=== PATIENT | male | born 1950 | race Caucasian/White ===

== ENCOUNTER 2024-12-27 10:38 | Observation (INO) ==
--- NOTE | 2024-12-27 11:04 | XRay Report ---
XR chest 1V portable CLINICAL HISTORY: Chest pain, nonspecific COMPARISON STUDY: None FINDINGS: Heart size and pulmonary vasculature are normal. No effusion, consolidation, or pneumothora x. IMPRESSION: No acute findings. ACT 112: Negative or not required by law. Electronically signed by: Eleuterio Underwood M.D. 12/27/2024 11:03 AM
[2024-12-27 11:06] LABS: Basophils # (auto) 0.03 K/uL (0.00-0.20); Basophils % (auto) 0.2 %; Eosinophils # (auto) 0.02 K/uL (0.00-0.50); Eosinophils % (auto) 0.2 %; Hematocrit (blood only) 46.3 % (42.0-52.0); Hemoglobin 15.6 g/dl (14.0-18.0); Immature Granulocytes # (auto) 0.04 K/uL (0.01-0.20); Immature Granulocytes % (auto) 0.3 %; Lymphocytes # (auto) 1.07 K/uL (1.20-3.40); Lymphocytes % (auto) 8.7 %; Mean Corpuscular Hemoglobin 29.6 pg (25.0-34.0); Mean Corpuscular Hgb Conc 33.7 g/dL (32.0-36.0); Mean Corpuscular Volume 87.9 fL (80.0-100.0); Mean Platelet Volume 10.4 fL (9.4-12.4); Monocytes # (auto) 1.07 K/uL (0.11-0.59); Monocytes % (auto) 8.7 %; Neutrophils # (auto) 10.09 K/uL (1.40-6.50); Neutrophils % (auto) 81.9 %; Platelet Count 158 K/uL (130-400); RDW Coefficient of Variation 13.2 % (11.5-14.5); RDW Standard Deviation 42.4 fL (36.4-46.3); Red Blood Count 5.27 M/uL (4.70-6.10); White Blood Count 12.32 K/ul (4.8-10.8)
--- NOTE | 2024-12-27 11:13 | Emergency Department Note ---
Impression & Plan Abscess of submandibular region, Facial swelling ED Provider Note NAME: SUSU TELLEZ AGE: 74 SEX: M : 1950 ARRIVES VIA: Walk-In INFORMANT: Patient, ED PROVIDER(S): Bayron Amezcua DO CHIEF COMPLAINT: Facial swelling HPI: The patient is a 74-year-old male who presented to the emergency department for an evaluation of right-sided neck swelling. The patient states it started approximately 3 to 4 days ago. He was seen by his family doctor. The patient did have some laboratory studies done but he was sent to the emergency department for further evaluation. He denies having any trauma. He states the pain is worse when he tries to eat or drink. He denies having any fever. He denies having any dental pain. ROS: See above HPI for pertinent positives & negatives. A total of 10 systems reviewed and were otherwise negative. PAST MEDICAL HISTORY: See Below PAST SURGICAL HISTORY: See Below FAMILY HISTORY: See Below SOCIAL HISTORY: See Below HOME MEDICATIONS: See Below ALLERGIES: See Below VITALS: See Below PHYSICAL EXAMINATION: GENERAL: Patient is awake alert in no acute distress patient is resting comfortably and showing no signs of anxiety EYES: The conjunctivae are clear. The pupils are round and reactive. EARS, NOSE, MOUTH AND THROAT: The nose is without any evidence of any deformity. Mucous membranes are moist. There is no gumline swelling or buccal mucosal swelling. There is significant swelling in the right submandibular region. The tongue is not protruding. NECK: The neck is nontender and supple. RESPIRATORY: Normal respiratory effort is noted there is no evidence of wheezing rhonchi or rales CARDIOVASCULAR: Regular rate and rhythm noted there no murmurs rubs or gallops normal S1 normal S2. GASTROINTESTINAL: The abdomen is soft. Abdomen is nontender. MUSCULOSKELETAL/EXTREMITIES: There is no evidence of gross deformity full range of motion is noted in the hips and shoulders. SKIN: There is no obvious evidence of any rash. There are no petechiae, pallor or cyanosis noted. NEUROLOGIC: Patient is awake alert and oriented x3 MEDICAL DECISION MAKING: The patient is a 74-year-old male who presented to the emergency department for an evaluation of facial swelling. The patient had a rather acute onset of swelling over the course of the last few days. The patient was seen by his family doctor. Given the acuity of the swelling as well as the patient's complaints they felt he required further evaluation in the emergency department. I discussed the patient's laboratory and radiographic studies with him. He was found to have findings consistent with an abscess in the submandibular region. He was treated with IV antibiotics and IV steroids. I discussed his condition with the on-call ENT physician as well as the on-call [facility] hospitalist group. They have agreed to evaluate the patient in the emergency department. Triage Nursing notes reviewed. Prior medical records reviewed Vital Signs: reviewed and remarkable for no significant abnormalities Differential diagnosis: Cervical strain, fracture, cervical disc disease, lymphadenitis, meningitis, tumor, arterial dissection, thyroiditis, parotitis, mastoiditis, neurologic, cardiovascular, as well as other pathologies. ER treatment provided: See below Diagnostics interpreted by me: ECG: EKG was obtained in the emergency department. My interpretation is sinus bradycardia at 57 bpm. There is no ectopy. There was no acute ST segment abnormalities noted. No previous tracing was available. Cardiac Monitoring: An order was placed for continuous cardiac monitoring. The monitor shows a rate of 67 bpm with sinus rhythm Laboratory studies: As stated above and show below. Imaging studies: See below. Radiographic imaging was reviewed by myself Consultation(s): I discussed this case with Dr. Pink who is on for ENT. I discussed this case with Dr. Peters who is on-call for the [facility] hospitalist group. Past Med/Surg History Problem List (Updated 12/27/24 @ 13:27 by Bayron Amezcua DO) Facial swelling (Acute) Abscess of submandibular region (Acute) ISIDRO (obstructive sleep apnea) Hyperlipemia Statin intolerance History of CVA (cerebrovascular accident) Hypertension Medical History CVA (cerebral vascular accident) Right inguinal hernia High cholesterol Hypertension Surgical History History of left hip replacement History of total right knee replacement Family History Grandmother (Maternal) Breast cancer Father Myocardial infarction Mother Ovarian cancer Grandfather (Maternal) Prostate cancer Denies family history of Colorectal cancer Social History Smoking Status: Unknown if ever smoked Tobacco Type: Cigarettes Age Started Using Tobacco: 20; Age Quit Using Tobacco: 24; packs per day: 0.15; Second Hand Exposure: No; Do You Dip or Chew Tobacco: No; Hx Alcohol Use: No Hx Substance Use: No Preferred Language: Citizen Of [place] Communication Ability: Effective Visual Impairment: No Limitations Hearing Ability: Normal Club Director Required: No marital status: / Current Living Situation: Alone current occupational status: retired How many Children do You have: 2 Feels Safe at Home: Yes Childhood Exposure to Second-Hand Smoke: Yes Diet: regular caffeine: Yes during the past year weight has: remained stable Dental Care, Regularly: Yes Physical Activity Frequency: Daily Seatbelt Use: always Sunscreen Use: Yes Assistive Devices: CPAP and Glasses Allergies Allergies Allergy/AdvReac Type Severity Reaction Status Date / Time No Known Allergies Allergy Verified 12/27/24 09:42 Home Meds Home Medications Medication Instructions Recorded Confirmed aspirin 81 mg tablet,delayed 81 mg PO DAILY 04/09/24 12/27/24 release (Michael Low Dose Aspirin) miscellaneous medical supply 12/27/24 12/27/24 Previous Rx's Medication Instructions Recorded [id number]-[id number] 300 mcg-K 60 1 tab PO DAILY #30 tabs 09/21/22 mcg-lycop 600 mcg-lutein 300 mcg tablet (Centrum Silver Men) ezetimibe 10 mg tablet (Zetia) 10 mg PO DAILY #90 tabs 09/06/24 pantoprazole 40 mg tablet,delayed 40 mg PO DAILY #30 tabs 10/09/24 release lisinopril 20 mg tablet 20 mg PO DAILY #90 tabs 12/27/24 Results & Data (ED) Vital Signs Vital Signs - 24 hr 12/27/24 10:43 12/27/24 10:54 12/27/24 10:58 Temperature 36.6 C Temperature Source Temporal Artery Scan Pulse Rate 73 75 Pulse Rate from SpO2 Sensor 64 Respiratory Rate 17 15 Respiratory Effort / Characteristics Non-Labored Spontaneous Respiratory Depth Normal Blood Pressure 146/87 H Blood Pressure Mean 106 Pulse Oximetry 99 98 98 Oxygen Delivery Method Room Air Room Air Sepsis Recent Fever Within 48 Hours No Sepsis New/Unexplained Change in Mental Status N/A Sepsis Action Taken by Nursing No Action Required 12/27/24 11:08 12/27/24 11:09 12/27/24 11:10 Temperature Temperature Source Pulse Rate 71 68 Pulse Rate from SpO2 Sensor 66 Respiratory Rate Respiratory Effort / Characteristics Respiratory Depth Blood Pressure 121/73 Blood Pressure Mean 95 Pulse Oximetry 99 Oxygen Delivery Method Sepsis Recent Fever Within 48 Hours Sepsis New/Unexplained Change in Mental Status Sepsis Action Taken by Nursing 12/27/24 11:12 12/27/24 11:21 12/27/24 11:27 Temperature Temperature Source Pulse Rate 59 L 57 L 54 L Pulse Rate from SpO2 Sensor 59 L 58 L 54 L Respiratory Rate 15 17 Respiratory Effort / Characteristics Respiratory Depth Blood Pressure Blood Pressure Mean Pulse Oximetry 98 96 97 Oxygen Delivery Method Sepsis Recent Fever Within 48 Hours Sepsis New/Unexplained Change in Mental Status Sepsis Action Taken by Nursing 12/27/24 11:30 12/27/24 11:30 12/27/24 11:30 Temperature Temperature Source Pulse Rate Pulse Rate from SpO2 Sensor Respiratory Rate Respiratory Effort / Characteristics Respiratory Depth Blood Pressure 117/61 117/61 117/61 Blood Pressure Mean 71 71 71 Pulse Oximetry Oxygen Delivery Method Sepsis Recent Fever Within 48 Hours Sepsis New/Unexplained Change in Mental Status Sepsis Action Taken by Nursing 12/27/24 11:30 12/27/24 11:30 12/27/24 11:30 Temperature Temperature Source Pulse Rate Pulse Rate from SpO2 Sensor Respiratory Rate Respiratory Effort / Characteristics Respiratory Depth Blood Pressure 117/61 117/61 117/61 Blood Pressure Mean 71 71 71 Pulse Oximetry Oxygen Delivery Method Sepsis Recent Fever Within 48 Hours Sepsis New/Unexplained Change in Mental Status Sepsis Action Taken by Nursing 12/27/24 11:30 12/27/24 11:30 12/27/24 11:48 Temperature Temperature Source Pulse Rate 66 Pulse Rate from SpO2 Sensor 51 L Respiratory Rate 19 Respiratory Effort / Characteristics Respiratory Depth Blood Pressure 117/61 117/61 Blood Pressure Mean 71 71 Pulse Oximetry 96 Oxygen Delivery Method Sepsis Recent Fever Within 48 Hours Sepsis New/Unexplained Change in Mental Status Sepsis Action Taken by Nursing 12/27/24 11:51 12/27/24 12:06 12/27/24 12:18 Temperature Temperature Source Pulse Rate 62 67 53 L Pulse Rate from SpO2 Sensor 61 60 54 L Respiratory Rate 21 23 15 Respiratory Effort / Characteristics Respiratory Depth Blood Pressure Blood Pressure Mean Pulse Oximetry 96 92 96 Oxygen Delivery Method Sepsis Recent Fever Within 48 Hours Sepsis New/Unexplained Change in Mental Status Sepsis Action Taken by Nursing 12/27/24 12:27 12/27/24 12:54 12/27/24 13:27 Temperature Temperature Source Pulse Rate 58 L 65 67 Pulse Rate from SpO2 Sensor 59 L 51 L 54 L Respiratory Rate 17 15 17 Respiratory Effort / Characteristics Respiratory Depth Blood Pressure Blood Pressure Mean Pulse Oximetry 97 97 98 Oxygen Delivery Method Sepsis Recent Fever Within 48 Hours Sepsis New/Unexplained Change in Mental Status Sepsis Action Taken by Nursing 12/27/24 13:30 12/27/24 13:30 12/27/24 13:30 Temperature Temperature Source Pulse Rate Pulse Rate from SpO2 Sensor Respiratory Rate Respiratory Effort / Characteristics Respiratory Depth Blood Pressure 131/70 131/70 131/70 Blood Pressure Mean 102 102 102 Pulse Oximetry Oxygen Delivery Method Sepsis Recent Fever Within 48 Hours Sepsis New/Unexplained Change in Mental Status Sepsis Action Taken by [facility] Medications Current Medication List: was personally reviewed by me Laboratory Data Attestation: I reviewed the patient's lab results. 12/27/24 10:55 12/27/24 10:55 Lab Results 12/27/24 Range/Units 10:55 WBC 12.32 H (4.8-10.8) K/ul RBC 5.27 (4.70-6.10) M/uL Hgb 15.6 (14.0-18.0) g/dl Hct 46.3 (42.0-52.0) % MCV 87.9 (80.0-100.0) fL MCH 29.6 (25.0-34.0) pg MCHC 33.7 (32.0-36.0) g/dL RDW Std Deviation 42.4 (36.4-46.3) fL RDW Coeff of Talia 13.2 (11.5-14.5) % Plt Count 158 (130-400) K/uL MPV 10.4 (9.4-12.4) fL Immature Gran % (Auto) 0.3 % Neut % (Auto) 81.9 % Lymph % (Auto) 8.7 % [place] % (Auto) 8.7 % Eos % (Auto) 0.2 % Baso % (Auto) 0.2 % Neut # (Auto) 10.09 H (1.40-6.50) K/uL Lymph # (Auto) 1.07 L (1.20-3.40) K/uL [place] # (Auto) 1.07 H (0.11-0.59) K/uL Eos # (Auto) 0.02 (0.00-0.50) K/uL Baso # (Auto) 0.03 (0.00-0.20) K/uL Immature Gran # (Auto) 0.04 (0.01-0.20) K/uL PT 11.2 (9.0-12.0) Seconds INR 1.0 (0.9-1.1) APTT 29 (21-31) Seconds PTT Ratio 1.1 Sodium 138 (136-145) mmol/L Potassium 3.9 (3.5-5.1) mmol/L Chloride 102 (98-107) mmol/L Carbon Dioxide 30 (21-32) mmol/L Anion Gap 6 (3-11) BUN 21 (6-23) mg/dl Creatinine 1.17 (0.6-1.4) mg/dl Est Cr Clr Drug Dosing 62.6 ml/min eGFR 65.42 BUN/Creatinine Ratio 17.9 (10-20) Glucose 106 H (70-99(Fasting)) mg/dl Calcium 9.6 (8.6-10.3) mg/dl Total Bilirubin 1.6 H (0.2-1.0) mg/dl AST 11 L (13-39) U/L ALT 8 (7-52) U/L Alkaline Phosphatase 54 (34-104) U/L Troponin I High Sens 7.1 (0-20) pg/ml Total Protein 7.5 (6.0-8.3) gm/dl Albumin 4.3 (3.4-5.0) gm/dl Globulin 3.2 (2.5-4.0) gm/dl Albumin/Globulin Ratio 1.3 (0.9-2) Lipase 17 (11-82) U/L Administered Medications Discontinued Medications Dexamethasone Sodium Phosphate (DexamethasonePf 10 Mg/Ml Vial) 10 mg IV NOW ONE Stop: 12/27/24 13:06 Last Admin: 12/27/24 13:14 Dose: 10 mg Documented By: BS Ampicillin Sodium/Sulbactam Sodium (Unasyn) 3,000 mg in 100 mls @ 200 mls/hr IV NOW STA Stop: 12/27/24 12:58 Last Infusion: 12/27/24 13:39 Dose: Infused Documented By: Admin: 12/27/24 12:43 Dose: 200 mls/hr Documented By: JED Sodium Chloride (Nss) 1,000 mls @ 999 mls/hr IV .Q1H1M ONE Stop: 12/27/24 13:30 Last Infusion: 12/27/24 13:39 Dose: Infused Documented By: Admin: 12/27/24 12:44 Dose: 999 mls/hr Documented By: JED Ioversol (Optiray 320 100ml) 94 ml IV ONCE ONE Stop: 12/27/24 11:59 Last Admin: 12/27/24 11:59 Dose: 94 ml Documented By: LINDSAY Imaging Data Attestation: I personally reviewed and interpreted this imaging study as follows: My Impression: 1 view chest x-ray was obtained in the emergency department. My interpretation is no free air or definite infiltrate, final report below. Radiologist's Impression: Chest X-Ray 12/27/24 10:50 XR chest 1V portable CLINICAL HISTORY: Chest pain, nonspecific COMPARISON STUDY: None FINDINGS: Heart size and pulmonary vasculature are normal. No effusion, consolidation, or pneumothorax. IMPRESSION: No acute findings. ACT 112: Negative or not required by law. Electronically signed by: Eleuterio Underwood M.D. 12/27/2024 11:03 AM Soft Tissue Neck CT 12/27/24 11:10 CT soft tissue neck w con CLINICAL HISTORY: right sided swelling COMPARISON STUDY: None FINDINGS: There is swallowing artifact. There is mild prominence of the right tonsillar pillar. There is a 3 cm oval hypodense finding with thin mildly enhancing rim posterior to the right submandibular gland which displaces the right submandibular gland anteriorly. There is surrounding soft tissue inflammation. The right submandibular gland is edematous and enlarged. There is mild right level 2 lymphadenopathy measuring up to 1.1 cm greatest dimension. There is cervical spine degenerative disc disease most advanced inferiorly. IMPRESSION: 1. 3 cm oval finding posterior to the right submandibular gland with adjacent inflammation. Differential diagnosis includes abscess, infected right branchial cleft cyst, and necrotic mass. 2. Likely reactive inflammation of the right submandibular gland, right tonsillar pillar and a few mildly enlarged right level 2 lymph nodes. 3. Follow-up to resolution recommended to rule out underlying mass. ACT 112: Positive. There are findings on this exam that require communication between the performing entity and the patient following Patient Test Result Information Act ([place] Act 112) guidelines. Electronically signed by: Eleuterio Underwood M.D. 12/27/2024 12:20 PM Discharge Plan Visit Data Chief Complaint: Throat Pain Stated Complaint: MASS PREVENTION SWALLOWING ED Provider: Bayron Amezcua Discharge Problem: Abscess of submandibular region, Facial swelling Patient Disposition: Being Evaluated by Hospitalist Forms [facility] Pres[facility] Prescriptions: No Action ezetimibe [Zetia] 10 mg tablet 10 mg PO DAILY Qty: 90 2RF Centrum Silver Men 300-600-300 mcg tablet 1 tab PO DAILY Qty: 30 0RF aspirin [Michael Low Dose Aspirin] 81 mg tablet,delayed release (DR/EC) 81 mg PO DAILY pantoprazole 40 mg tablet,delayed release (DR/EC) 40 mg PO DAILY Qty: 30 2RF lisinopril 20 mg tablet 20 mg PO DAILY Qty: 90 2RF (DME) miscellaneous medical supply Misc VAGINAL Rx Instructions: Patient needs supplies for his C-pap---(hoses and filters) Referrals Referrals: Melodie Nguyen CRNP [Primary Care Provider] -
[2024-12-27 11:19] LABS: Partial Thromboplastin Ratio 1.1; Partial Thromboplastin Time 29 Seconds (21-31); Prothrombin Time 11.2 Seconds (9.0-12.0)
[2024-12-27 11:39] LABS: Bilirubin,Total 1.6 mg/dl (0.2-1.0)
[2024-12-27 11:40] LABS: Albumin Globulin Ratio 1.3 (0.9-2); Albumin Level 4.3 gm/dl (3.4-5.0); BUN Creatinine Ratio 17.9 (10-20); Calcium 9.6 mg/dl (8.6-10.3); Creatinine Clr Calc Pharmacy 62.6 ml/min; Globulin 3.2 gm/dl (2.5-4.0); Potassium 3.9 mmol/L (3.5-5.1); Total Protein 7.5 gm/dl (6.0-8.3); Troponin I High Sensitivity 7.1 pg/ml (0-20)
[2024-12-27] MEDS: OPTIRAY 320 100ml IV ONE (11:59)
--- NOTE | 2024-12-27 12:22 | CT Scan Report ---
CT soft tissue neck w con CLINICAL HISTORY: right sided swelling COMPARISON STUDY: None FINDINGS: There is swallowing artifact. There is mild prominence of the right tonsillar pillar. There is a 3 cm oval hypodense finding with thin mildly enhancing rim posterior to the right submandibular gland which displaces the right submandibular gland anteriorly. There is surrounding soft tissue inf lammation. The right submandibular gland is edematous and enlarged. There is mild right level 2 lymph adenopathy measuring up to 1.1 cm greatest dimension. There is cervical spine degenerative disc disea se most advanced inferiorly. IMPRESSION: 1. 3 cm oval finding posterior to the right submandibular gland with adjacent inflammation. Different ial diagnosis includes abscess, infected right branchial cleft cyst, and necrotic mass. 2. Likely reactive inflammation of the right submandibular gland, right tonsillar pillar and a few mi ldly enlarged right level 2 lymph nodes. 3. Follow-up to resolution recommended to rule out underlying mass. ACT 112: Positive. There are findings on this exam that require communication between the performing entity and the patient following Patient Test Result Information Act ([place] Act 112) guidelines. Electronically signed by: Eleuterio Underwood M.D. 12/27/2024 12:20 PM
[2024-12-27] MEDS: AMPICILLIN/SULBACTAM SOD 3,000 MG/100 ML BAG IV STA (12:43)
[2024-12-27] MEDS: SODIUM CHLORIDE 0.9% 1,000 ML IV ONE (12:44)
[2024-12-27] MEDS: dexAMETHasone**PF** 10 MG/ML VIAL IV ONE (13:14)
--- NOTE | 2024-12-27 13:23 | Electrocardiogram Report ---
Test Reason : Blood Pressure : */* mmHG Vent. Rate : 57 BPM Atrial Rate : 57 BPM P-R Int : 166 ms QRS Dur : 116 ms QT Int : 420 ms P-R-T Axes : 26 -7 29 degrees QTcB Int : 408 ms Sinus bradycardia Otherwise normal ECG No previous ECGs available Confirmed by Bayron Paulson ([id number]) on 12/27/2024 1:22:38 PM Referred By: Confirmed By: Bayron Paulson
--- NOTE | 2024-12-27 13:34 | History & Physical Report ---
Date of Service December 27, 2024 Assessment & Plan (1) Abscess of submandibular region: Plan: Submandibular abscess Right 3 cm submandibular abscess on CT Mild leukocytosis, no fever. Normotensive. No tachycardia. He is not septic on admission Continue Unasyn Dexamethasone 10 mg x 1 given N.p.o. pending surgical evaluation. Patient had 2 cups of coffee this morning, no food since. No drink since IV FM while NPO No wheezing/stridor or evidence of respiratory compromise RCRI 1 for history of prior TIA. Patient takes baby aspirin daily which she took this morning. No history of CKD, DM/insulin use, CHF, ischemic heart disease. 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 Reports imaging was negative. No residual deficits. Takes aspirin daily. This is held pending operative intervention, may resume postop once at acceptable bleeding risk No history of OH/ischemic heart disease. Denies history of chest pain with exertion. ISIDRO Continue CPAP Hypertension Lisinopril held pending surgical evaluation. Resume 12/28 if renal function and BP is stable Hyperlipidemia Statin intolerant. May continue Zetia once able to progress p.o. GERD PPI converted to IV while n.p.o. DVT prophylaxis: SCDs perioperatively, Lovenox postop Diet: N.p.o., LR 125 cc/h CODE STATUS: Full code Disposition: MSO (2) ISIDRO (obstructive sleep apnea): (3) Hyperlipemia: History of Present Illness Primary Care Provider: ELENA Jones Antonio is a 74-year-old male with a past medical history of ISIDRO, hyperlipidemia, statin intolerance, CVA, hypertension presented with throat pain and was found to have a 3 cm abnormality suspicious for abscess versus infected cyst versus necrotic mass at the right submandibular gland. He was treated with Unasyn, dexamethasone and referred for admission. 3 days of facial swelling Submandibular access on CT Evaluated by ENT --> Dr. Pink. Anticipate drainage later No hx heart disease/OH/CHF No lung disease History of suspected ministroke while with covid, no residual deficits No history DM, no history of insulin use No hx of CKD Hx well controlled HTN on lisinopril, HLD on zetia. Statin intolerant Takes baby aspirin daily with HTN and since ministroke/TIA several years ago ISIDRO on home CPAP 2 cups of coffee 8am. No food today due to pain in his jaw when swallowing. Medical History: Reviewed Medications: Reviewed Surgical History: Reviewed Family history: Reviewed Allergies: Reviewed. NKDA Social History: Former smoker, none in 50 years. Alcohol, few beers on weekends only. No drug use Code Status:Surrogate DM daughter Charlene Saenz [phone] Allergies Allergy/AdvReac Type Severity Reaction Status Date / Time No Known Allergies Allergy Verified 12/27/24 09:42 Home Medications Medication Instructions Recorded Confirmed Type arfhlspa-mw-khqmh 300 mcg-K 60 1 tab PO DAILY #30 tabs 09/21/22 12/27/24 Rx mcg-lycop 600 mcg-lutein 300 mcg tablet (Centrum Silver Men) aspirin 81 mg tablet,delayed 81 mg PO DAILY 04/09/24 12/27/24 History release (Michael Low Dose Aspirin) ezetimibe 10 mg tablet (Zetia) 10 mg PO DAILY #90 tabs 09/06/24 12/27/24 Rx pantoprazole 40 mg tablet,delayed 40 mg PO DAILY #30 tabs 10/09/24 12/27/24 Rx release lisinopril 20 mg tablet 20 mg PO DAILY #90 tabs 12/27/24 12/27/24 Rx miscellaneous medical supply 12/27/24 12/27/24 History Past Med/Surg History Problem List (Updated 12/27/24 @ 13:27 by Bayron Amezcua DO) Facial swelling (Acute) Abscess of submandibular region (Acute) ISIDRO (obstructive sleep apnea) Hyperlipemia Statin intolerance History of CVA (cerebrovascular accident) Hypertension Medical History CVA (cerebral vascular accident) Right inguinal hernia High cholesterol Hypertension Surgical History History of left hip replacement History of total right knee replacement Family History Grandmother (Maternal) Breast cancer Father Myocardial infarction Mother Ovarian cancer Grandfather (Maternal) Prostate cancer Denies family history of Colorectal cancer Social History Smoking Status: Unknown if ever smoked Tobacco Type: Cigarettes Age Started Using Tobacco: 20; Age Quit Using Tobacco: 24; packs per day: 0.15; Second Hand Exposure: No; Do You Dip or Chew Tobacco: No; Hx Alcohol Use: No Hx Substance Use: No Preferred Language: [place] Communication Ability: Effective Visual Impairment: No Limitations Hearing Ability: Normal Composition Floor Layer Required: No marital status: / Current Living Situation: Alone current occupational status: retired How many Children do You have: 2 Feels Safe at Home: Yes Childhood Exposure to Second-Hand Smoke: Yes Diet: regular caffeine: Yes during the past year weight has: remained stable Dental Care, Regularly: Yes Physical Activity Frequency: Daily Seatbelt Use: always Sunscreen Use: Yes Assistive Devices: CPAP and Glasses Physical Exam Physical Exam: General: A&Ox3. NAD. Cooperative. HEENT: Atraumatic, normocephalic. R jaw/submandibular swelling, TTP. Uvula midline. Vision/hearing grossly intact. No stridor. Voice normal. L sided posterior orophaynx, submandibular swelling although uvula is near midline. Pulm: CTAB A&P. -wheezes, -rales, -rhonchi. Symmetrical chest rise. No increased work of breathing. No respiratory distress. Cardiac: RRR, -mrg. Radial pulses intact and symmetrical. Abdominal: Nontender, nondistended, soft. BS present. Ext: warm, dry. Moves nel xtremities equally, no edema Results & Data Results & Data Vital Signs (Past 12 Hours) Vital Signs Temp Pulse Resp BP Pulse Ox O2 Del Method 12/27/24 12:18 53 L 15 96 12/27/24 12:06 67 23 92 12/27/24 11:51 62 21 96 12/27/24 11:48 66 19 96 12/27/24 11:30 117/12/27/24 11:30 117/12/27/24 11:30 117/61 12/27/24 11:30 117/12/27/24 11:30 117/61 12/27/24 11:30 117/61 12/27/24 11:30 117/12/27/24 11:30 11712/27/24 11:27 54 L 17 97 12/27/24 11:21 57 L 15 96 12/27/24 11:12 59 L 98 12/27/24 11:10 68 12/27/24 11:09 71 99 12/27/24 11:08 121/73 12/27/24 10:58 98 Room Air 12/27/24 10:54 75 15 98 12/27/24 10:43 36.6 C 73 17 146/87 H 99 Room Air PG Care Time/CCT Total # of Minutes Spent Total Time Spent with Patient: Total time spent is greater than 50% in coordination of care (as documented) at patient's floor/unit and/or counseling patient: Coding Level of Care Code 89815 INT INP/OBS CARE 3/75MIN Diagnoses Abscess of submandibular region K12.2 ISIDRO (obstructive sleep apnea) G47.33 Hyperlipemia E78.5
--- NOTE | 2024-12-27 14:30 | Anesthesiology Consultation ---
Date of Service December 27, 2024 Assessment & Plan Chart Review Chart Review: Acceptable Risk for Surgery and Patient NOT seen in Pre Admission Testing Consults Requested none History Surgery Operation Date: 12/27/24 10:35 Proposed Procedures p Neck Node Excision - Oz Pink MD s Right Neck Abscess Incision and Drainage - Oz Pink MD Height/Weight Height: 6 ft 1 in Weight: 93.2 kg Allergies Allergy/AdvReac Type Severity Reaction Status Date / Time No Known Allergies Allergy Verified 12/27/24 09:42 Medications Home Medications Medication Instructions Recorded Confirmed Last Taken ifktblfz-xv-gjlhb 300 mcg-K 60 1 tab PO DAILY #30 tabs 09/21/22 12/27/24 12/27/24 mcg-lycop 600 mcg-lutein 300 mcg tablet (Centrum Silver Men) aspirin 81 mg tablet,delayed 81 mg PO DAILY 04/09/24 12/27/24 12/27/24 release (Michael Low Dose Aspirin) ezetimibe 10 mg tablet (Zetia) 10 mg PO DAILY #90 tabs 09/06/24 12/27/24 12/27/24 pantoprazole 40 mg tablet,delayed 40 mg PO DAILY #30 tabs 10/09/24 12/27/24 12/27/24 release lisinopril 20 mg tablet 20 mg PO DAILY #90 tabs 12/27/24 12/27/24 12/27/24 miscellaneous medical supply 12/27/24 12/27/24 Unknown Past Medical History Medical History CVA (cerebral vascular accident) Right inguinal hernia High cholesterol Hypertension Past Family History Family History Grandmother (Maternal) Breast cancer Father Myocardial infarction Mother Ovarian cancer Grandfather (Maternal) Prostate cancer Denies family history of Colorectal cancer Past Surgical History Surgical History History of left hip replacement History of total right knee replacement Social History Smoking Status: Unknown if ever smoked Do You Dip or Chew Tobacco: No Hx Alcohol Use: No Hx Substance Use: No Physical Exam Vital Signs Last Vital Signs Temp 36.6 C 12/27/24 10:43 Pulse 63 12/27/24 14:03 Resp 13 12/27/24 14:03 BP 150/72 H 12/27/24 14:00 Pulse Ox 99 12/27/24 14:03 O2 Del Method Room Air 12/27/24 10:58 Testing Laboratory Results 12/27/24 10:55 12/27/24 10:55 PT 11.2 Seconds (9.0-12.0) 12/27/24 10:55 INR 1.0 (0.9-1.1) 12/27/24 10:55 APTT 29 Seconds (21-31) 12/27/24 10:55 Electrocardiogram Date: 12/27/24 Findings: + SB @ (57) Chest X-Ray Date: 12/27/24 Findings: + NAD Other Testing Sot neck tissue CT 12/27/24 IMPRESSION: 1. 3 cm oval finding posterior to the right submandibular gland with adjacent inflammation. Differential diagnosis includes abscess, infected right branchial cleft cyst, and necrotic mass. 2. Likely reactive inflammation of the right submandibular gland, right tonsillar pillar and a few mildly enlarged right level 2 lymph nodes. 3. Follow-up to resolution recommended to rule out underlying mass.
[2024-12-27] MEDS: LACTATED RINGER'S 1,000 ML IV SCH (15:22)
[2024-12-27] MEDS ORDERED: PROPOFOL IV EMULSION 10 MG/ML 20 ML VIAL IV ONE ×2 (16:18→18:06)
[2024-12-27] MEDS ORDERED: LIDOCAINE 2% 2 ML VIAL/AMP(20MG/ML) INFIL ONE (16:18)
[2024-12-27] MEDS ORDERED: DEXAMETHASONE SOD INJ 4 MG/ML VIAL ONE (16:20)
[2024-12-27] MEDS ORDERED: GLYCOPYRROLATE 0.2 MG/ML VIAL ONE (16:20)
[2024-12-27] MEDS ORDERED: ONDANSETRON INJ 2 MG/ML 2 ML VIAL ONE (16:20)
--- NOTE | 2024-12-27 16:24 | ENT Consultation ---
Date of Consultation December 27, 2024 Assessment & Plan (1) Abscess of submandibular region: Plan 74yM with R neck abscess. 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 CT shows 2.5cm fluid collection with surrounding inflammation. Recommend I+D in OR. Risks and benefits discussed in detail, consent obtained. Will recommend observation overnight on hospitalist service, hopefully home tomorrow. Continue unasyn. History of Present Illness Attending Physician: Robert Price MD History of Present Illness 74yM h/o CVA presenting with R facial/neck swelling. Began 2 days ago, increased quickly. +odynophagia. No dental issues or trauma. No prior episodes of similar symptoms. WBC 12 CT neck with contrast per my read with 2.5cm rim enhancing fluid collection R submandibular region with surrounding stranding Remote tobacco history Allergies Allergy/AdvReac Type Severity Reaction Status Date / Time No Known Allergies Allergy Verified 12/27/24 09:42 Home Medications Medication Instructions Recorded Confirmed Type imalweeu-xt-ljhsi 300 mcg-K 60 1 tab PO DAILY #30 tabs 09/21/22 12/27/24 Rx mcg-lycop 600 mcg-lutein 300 mcg tablet (Centrum Silver Men) aspirin 81 mg tablet,delayed 81 mg PO DAILY 04/09/24 12/27/24 History release (Michael Low Dose Aspirin) ezetimibe 10 mg tablet (Zetia) 10 mg PO DAILY #90 tabs 09/06/24 12/27/24 Rx pantoprazole 40 mg tablet,delayed 40 mg PO DAILY #30 tabs 10/09/24 12/27/24 Rx release lisinopril 20 mg tablet 20 mg PO DAILY #90 tabs 12/27/24 12/27/24 Rx miscellaneous medical supply 12/27/24 12/27/24 History Patient History Medical History CVA (cerebral vascular accident) Right inguinal hernia High cholesterol Hypertension Surgical History History of left hip replacement History of total right knee replacement Family History Grandmother (Maternal) Breast cancer Father Myocardial infarction Mother Ovarian cancer Grandfather (Maternal) Prostate cancer Denies family history of Colorectal cancer Social History Smoking Status: Former smoker Tobacco Type: Cigarettes Age Started Using Tobacco: 20; Age Quit Using Tobacco: 24; packs per day: 0.15; Second Hand Exposure: No; Do You Dip or Chew Tobacco: No; Hx Alcohol Use: Yes Alcohol type: beer Alcohol Intake Frequency: Monthly or Less Hx Substance Use: No Preferred Language: Setswana Communication Ability: Effective Visual Impairment: No Limitations Hearing Ability: Normal Early Childhood Required: No Beliefs That Will Affect Care: None marital status: / Current Living Situation: Alone current occupational status: retired How many Children do You have: 2 Feels Safe at Home: Yes Childhood Exposure to Second-Hand Smoke: Yes Diet: regular caffeine: Yes during the past year weight has: remained stable Dental Care, Regularly: Yes Physical Activity Frequency: Daily Seatbelt Use: always Sunscreen Use: Yes Assistive Devices: None Review of Systems Review of Systems: A 10 point ROS is negative except as noted above Physical Exam Physical Exam: WNWD, NAD EOMI, normal sclera Nares patent, no external deformity External ears normal Normal voice Oral cavity clear, normal dentition without obvious abscess FOM soft Managing secretions Nonlabored respirations, no stridor AAO x3 FN function intact Moving all extremities spontaneously R neck fullness with mild erythema, induration and fluctuance R level Ib/II Results & Data Vital Signs (Past 12 Hours) Vital Signs Temp Pulse Pulse Resp BP BP Pulse Ox 12/27/24 15:54 36.7 C 61 16 132/75 96 12/27/24 15:36 63 15 124/71 98 12/27/24 14:03 63 13 99 12/27/24 14:00 150/72 H 12/27/24 14:00 150/72 H 12/27/24 14:00 150/72 H 12/27/24 13:30 131/70 12/27/24 13:30 131/70 12/27/24 13:30 131/70 12/27/24 13:30 131/70 12/27/24 13:30 131/70 12/27/24 13:30 131/70 12/27/24 13:30 131/70 12/27/24 13:27 67 17 98 12/27/24 12:54 65 15 97 03/27/25 12:27 58 L 17 97 12/27/24 12:18 53 L 15 96 12/27/24 12:06 67 23 92 12/27/24 11:51 62 21 96 12/27/24 11:48 66 19 96 12/27/24 11:30 117/61 12/27/24 11:30 117/61 12/27/24 11:30 117/61 12/27/24 11:30 117/61 12/27/24 11:30 117/61 12/27/24 11:30 117/61 12/27/24 11:30 117/61 12/27/24 11:30 117/61 12/27/24 11:27 54 L 17 97 12/27/24 11:21 57 L 15 96 12/27/24 11:12 59 L 98 12/27/24 11:10 68 12/27/24 11:09 71 99 12/27/24 11:08 121/73 12/27/24 10:58 98 12/27/24 10:54 75 15 98 12/27/24 10:43 36.6 C 73 17 146/87 H 99 O2 Del Method 12/27/24 15:54 Room Air 12/27/24 15:36 12/27/24 14:03 12/27/24 14:00 12/27/24 14:00 12/27/24 14:00 12/27/24 13:30 12/27/24 13:30 12/27/24 13:30 12/27/24 13:30 12/27/24 13:30 12/27/24 13:30 12/27/24 13:30 12/27/24 13:27 12/27/24 12:54 12/27/24 12:27 12/27/24 12:18 12/27/24 12:06 12/27/24 11:51 12/27/24 11:48 12/27/24 11:30 12/27/24 11:30 12/27/24 11:30 12/27/24 11:30 12/27/24 11:30 12/27/24 11:30 12/27/24 11:30 12/27/24 11:30 12/27/24 11:27 12/27/24 11:21 12/27/24 11:12 12/27/24 11:10 12/27/24 11:09 12/27/24 11:08 12/27/24 10:58 Room Air 12/27/24 10:54 12/27/24 10:43 Room Air PG Care Time/CCT Total # of Minutes Spent Total Time Spent with Patient: Total time spent is greater than 50% in coordination of care (as documented) at patient's floor/unit and/or counseling patient: Coding Level of Care Code 58811 ER DEPT VISIT MOD LVL 4 Diagnoses Abscess of submandibular region K12.2
[2024-12-27] MEDS ORDERED: ONDANSETRON INJ 2 MG/ML 2 ML VIAL IV PRN (17:09)
[2024-12-27] MEDS ORDERED: fentaNYL citrate PF 100 MCG/2 ML VIAL IV PRN (17:09)
[2024-12-27] MEDS ORDERED: ePHEDrine sulfate 50 MG/ML AMP IV PRN (17:09)
[2024-12-27] MEDS ORDERED: HYDROmorphone INJ 1 MG/ML SYRINGE IV PRN (17:09)
[2024-12-27] MEDS ORDERED: ATROPINE SULFATE 0.1 MG/ML 10ML SYR IV PRN (17:09)
[2024-12-27] MEDS ORDERED: fentaNYL citrate PF 100 MCG/2 ML VIAL ONE ×2 (17:32→18:03)
[2024-12-27] MEDS ORDERED: ROCURONIUM BROMIDE 10 MG/ML 5 ML VIAL IV ONE (17:33)
[2024-12-27] MEDS ORDERED: SUCCINYLCHOLINE CHLORIDE 20 MG/ML 10 ML VIAL IV ONE (17:33)
[2024-12-27] MEDS: LIDOCAINE 1%/EPINEPHRINE 1:100,000 50 ML VIAL ONE (18:28)
--- NOTE | 2024-12-27 18:41 | Operative Report ---
PG Post Operative Report Pre & Post Diagnosis Operation Date: 12/27/24 10:35 <No data on this case meets the specified criteria> 1. Right neck abscess I identified the patient and participated in the time-out.: Yes Procedure Operation Date: 12/27/24 10:35 <No data on this case meets the specified criteria> 1. Incision and drainage right neck abscess Surgeon Oz Pink MD [place] none Estimated Blood Loss 5 Findings See Below 1. R submandibular abcess Specimens Right submandibular fluid collection Drains 1/4" armida x1 Anesthesia Type General Complications none Indications The patient is a 74yM with a history, imaging, and exam consistent with a 2.5cm cystic rim enhancing fluid collection in the right neck. It was recommended that he undergo incision and drainage right neck abscess in the operating room. The risks and benefits of the procedure were discussed in detail and the patient elected to proceed. Informed consent was obtained. Description of Procedure The patient was identified in the preoperative holding area and brought back to the operating room. The patient was placed supine on the operating room table. After the successful induction of general orotracheal anesthesia by the anesthesia team, the patient was prepped and draped in the usual fashion for an incision and drainage of right neck abscess. A surgical timeout was performed. A 3 cm incision was marked in a natural skin crease 2 fingerbreadths below the mandible. The skin and subcutaneous tissue was injected with 1% lidocaine with 1:100,000 epinephrine. An incision was carried out sharply through the skin and subcutaneous tissue. Dissection was carried out through the platysma using electrocautery. The anterior border of the sternocleidomastoid muscle was identified. Just anterior to it, a cystic sac was noted. This was aspirated with an 18 gauge needle and purulent fluid was removed. This was passed off the table for cytology and culture. The cyst was incised with iris scissors and purulent fluid was expressed. The wound was then irrigated with copious saline and suctioned clear. Adequate hemostasis was noted. A quarter inch Vernalis was placed in the incision and secured with a drain stitch. The wound was then closed with 3-0 Vicryl interrupted platysmal sutures, 4-0 Monocryl interrupted deep dermal sutures, and a running 5-0 Monocryl subcuticular suture. The wound was dressed with Steri-Strips and gauze with a Kerlix wrap. The patient was then turned over to the anesthesia team and extubated without difficulty. The patient was transferred to the PACU in good condition. I was present and performed the entire procedure myself. I attest to the content of the Intraoperative Record and any orders documented therein. Any exceptions are noted below.
[2024-12-27] MEDS: AMPICILLIN/SULBACTAM SOD 3,000 MG/100 ML BAG IV SCH (19:59)
[2024-12-27] MEDS: oxyCODONE HCL IR 5 MG TAB (IMMEDIATE RELEASE) PO PRN (22:10)
[2024-12-28 03:33] VITALS: RESP 18
[2024-12-28 06:03] LABS: Hematocrit (blood only) 39.2 % (42.0-52.0); Hemoglobin 13.5 g/dl (14.0-18.0); Mean Corpuscular Hgb Conc 34.4 g/dL (32.0-36.0); Mean Corpuscular Volume 87.1 fL (80.0-100.0); Mean Platelet Volume 10.4 fL (9.4-12.4); Platelet Count 142 K/uL (130-400); RDW Standard Deviation 41.1 fL (36.4-46.3); White Blood Count 8.53 K/ul (4.8-10.8)
[2024-12-28 06:20] LABS: Basophils # (auto) 0.01 K/uL (0.00-0.20); Basophils % (auto) 0.1 %; Immature Granulocytes # (auto) 0.03 K/uL (0.01-0.20); Immature Granulocytes % (auto) 0.4 %; Lymphocytes # (auto) 0.32 K/uL (1.20-3.40); Lymphocytes % (auto) 3.8 %; Monocytes # (auto) 0.17 K/uL (0.11-0.59); Neutrophils % (auto) 93.7 %
[2024-12-28 06:33] LABS: Calcium 8.8 mg/dl (8.6-10.3); Creatinine Clr Calc Pharmacy 73.2 ml/min; Potassium 4.7 mmol/L (3.5-5.1)
--- NOTE | 2024-12-28 06:45 | Ears,Nose,Throat Progress Note ---
Date of Service December 28, 2024 Assessment & Plan (1) Abscess of submandibular region: Plan 74yM with R neck abscess s/p I+D 12/27/24. 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 Improving. -OK for d/c home from ENT standpoint -Augmentin x10 days -Keep incision dry while armida in place -No lifting >10 pounds -F/u 12/31 in office for armida Admission and Anticipated Discharge Date Admission Date: December 27, 2024 Subjective EMILY o/n. Pain controlled. mild drainage from incision. No respiratory issues. Physical Exam Physical Exam: Neck incision with steris in place, armida in place with ss drainage Induration improving, no significant fluctuance or cellulitis Results & Data Vital Signs (Past 12 Hours) Vital Signs Temp Pulse Pulse Resp BP Pulse Ox O2 Del Method 12/28/24 04:56 56 L 113/64 12/28/24 03:31 36.5 C 56 L 18 89/52 L 95 CPAP 12/28/24 03:19 62 15 96 12/27/24 23:12 55 L 25 H 94 12/27/24 22:38 36.5 C 70 18 115/68 92 CPAP 12/27/24 21:00 CPAP 12/27/24 20:59 36.3 C L 67 18 124/78 95 Room Air 12/27/24 20:23 73 24 94 12/27/24 19:40 36.7 C 77 18 149/79 H 94 Room Air 12/27/24 19:15 85 18 148/72 H 94 Room Air 12/27/24 19:05 37 C 79 20 143/78 H 93 Room Air 12/27/24 18:55 87 22 144/86 H 96 Oxymask 12/27/24 18:45 36 C L 84 14 150/97 H 94 Oxymask O2 Flow Rate FiO2 12/28/24 04:56 12/28/24 03:31 12/28/24 03:19 21 12/27/24 23:12 21 12/27/24 22:38 12/27/24 21:00 12/27/24 20:59 12/27/24 20:23 21 12/27/24 19:40 12/27/24 19:15 12/27/24 19:05 12/27/24 18:55 6 12/27/24 18:45 6 PG Care Time/CCT Total # of Minutes Spent Total Time Spent with Patient: Total time spent is greater than 50% in coordination of care (as documented) at patient's floor/unit and/or counseling patient: Coding Level of Care Code None Diagnoses Abscess of submandibular region K12.2
[2024-12-28 07:17] VITALS: BP 110/62; PULSE 47; TEMP 97.5; O2SAT 93
[2024-12-28] MEDS: EZETIMIBE 10 MG TAB PO SCH (08:07)
[2024-12-28] MEDS: dexAMETHasone 6 MG in SYRINGE 0 ML IV SCH (08:07)
[2024-12-28] MEDS: PANTOprazole 40 MG/10 ML SYR IV SCH (08:07)
[2024-12-28] MEDS ORDERED: ACETAMINOPHEN 500 MG TAB PO PRN (08:21)
[2024-12-28] MEDS ORDERED: DEXAMETHASONE SOD INJ 4 MG/ML VIAL IV SCH (09:00)
--- NOTE | 2024-12-28 09:14 | Communication Note ---
Date of Service: December 28, 2024 By CMS guidelines, a determination that the admission or continued stay is not medically necessary has been made by a member of the UR committee and a physi jl for this hospital stay, therefore a Code 44 will be completed and the Inpatient admission will be changed to outpatient.
--- NOTE | 2024-12-28 09:18 | Discharge Summary ---
Discharge Summary Date of Service December 28, 2024 Principal Dx & Hospital Course #1 = Principal Diagnosis (1) Abscess of submandibular region: (2) ISIDRO (obstructive sleep apnea): (3) Hyperlipemia: Plan Submandibular abscess Right 3 cm submandibular abscess on CT. Not septic on presentation. Received IV Unasyn while inpatient. S/P OR Right Subandibular Abscess Incison and Drainage with Dr. Pink, 12/27. Doing well post operatively, cleared for discharge by ENT. Continue Augmentin BID x 10 days. ENT f/u scheduled 12/31 at 10am. History of TIA - continue ASA ISIDRO Continue CPAP Hypertension - Continue lisinopril Hyperlipidemia - continue Zetia GERD - continue PPI Notes For Next Care Provider Medication Changes From Visit augmentin BID x 10 days Admission HPI Per Admitting Provider Antonio is a 74-year-old male with a past medical history of ISIDRO, hyperlipidemia, statin intolerance, CVA, hypertension presented with throat pain and was found to have a 3 cm abnormality suspicious for abscess versus infected cyst versus necrotic mass at the right submandibular gland. He was treated with Unasyn, dexamethasone and referred for admission. 3 days of facial swelling Submandibular access on CT Evaluated by ENT --> Dr. Pink. 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 Statin intolerant Takes baby aspirin daily with HTN and since ministroke/TIA several years ago ISIDRO on home CPAP 2 cups of coffee 8am. No food today due to pain in his jaw when swallowing. Medical History: Reviewed Medications: Reviewed Surgical History: Reviewed Family history: Reviewed Allergies: Reviewed. NKDA Social History: Former smoker, none in 50 years. Alcohol, few beers on weekends only. No drug use Code Status:Surrogate DM daughter Charlene Saenz [phone] Discharge Exam General: NAD, VS as above HEENT: Dressing in place, with drain visable. No signs of cellulitis. Minimal drainage. No stridor. Resp: normal respiratory effort, lungs clear to auscultation CV: RRR, no murmur, Abd: normal bowel sounds, non tender, no hepatosplenomegaly Extremities: Moves all extremities, no edema Neuro: A&O x3, Discharge Plan Discharge Items Patient Disposition: Home - Self-Care Reason For Visit: SEBMANDIBULAR ABSCESS Discharge Diagnosis: Submandibular abcess Activity: As commented below Lifting: No more than 10 pounds Bathing: Keep incision dry Driving/Machine Use: No limitations Weightbearing: Full weightbearing Non-emergency contact: Primary Care Provider and Surgeon Call non-emergency contact if: you have any medication questions, your symptoms worsen and your temperature is above 101 Follow-up/Referrals: Melodie Nguyen CRNP [Primary Care Provider] - 01/04/25 11:00 am (follow up 7-10 days ) Oz Pink MD [Physician] - 12/31/24 10:00 am (follow up 12/31 for drain removal ) Diet: Regular Addtl Attending Provider Instructions: Mr. Garces, Ashish were hospitalized for an abscess near your neck that required drainage in the OR with Dr. Pink. Thankfully, you have done well and are stable to go home on oral antibiotics. Please take the entire course, even if you feel well. You will need to follow up with Dr. Pink office on Tuesday for drain removal. - keep incision clean and dry - no lifting over 10 pounds - can use tylenol or ibuprofen for pain - follow the instructions on the bottle - first dose of antibiotics tonight 12/28 Please follow up with your PCP next week. Return with severe pain, inability to swallow, difficulty breathing, etc. Thank you for allowing us to participate in your care! Pending Studies at Discharge: Yes Stand-Alone Forms: [facility] Sm[facility] Cessation Medications and DC Order Prescriptions: New amoxicillin-pot clavulanate 875-125 mg tablet 1 tab PO BID Qty: 20 0RF Continued ezetimibe [Zetia] 10 mg tablet 10 mg PO DAILY Qty: 90 2RF Centrum Silver Men 300-600-300 mcg tablet 1 tab PO DAILY Qty: 30 0RF aspirin [Michael Low Dose Aspirin] 81 mg tablet,delayed release (DR/EC) 81 mg PO DAILY pantoprazole 40 mg tablet,delayed release (DR/EC) 40 mg PO DAILY Qty: 30 2RF lisinopril 20 mg tablet 20 mg PO DAILY Qty: 90 2RF (DME) miscellaneous medical supply Misc VAGINAL Rx Instructions: Patient needs supplies for his C-pap---(hoses and filters) Discharge Orders: Discharge Order (Routine); Ordered 12/28/24 Ordered By: Asha Garza Admission Data Admit Date/Time: 12/27/24 13:56 Attending Provider: Jay Brown Admit Provider: Robert Price Primary Care Provider: Melodie Nguyen Other Providers: Robert Price Other Interventions: Discharge Summary Assessment (RN) Last Done: 12/28/24 10:24 Hospital Stay Data Consultations 12/27/24 13:29 ED Decision to Admit Stat Procedures Performed Operation Date: 12/27/24 10:35 Actual Procedures p Right Submandibular Abscess Incision and Drainage(Not Applicable) - Oz Pink MD Diagnostic Imagining Performed Chest X-Ray 12/27/24 10:50 XR chest 1V portable CLINICAL HISTORY: Chest pain, nonspecific COMPARISON STUDY: None FINDINGS: Heart size and pulmonary vasculature are normal. No effusion, consolidation, or pneumothorax. IMPRESSION: No acute findings. ACT 112: Negative or not required by law. Electronically signed by: Eleuterio Underwood M.D. 12/27/2024 11:03 AM Soft Tissue Neck CT 12/27/24 11:10 CT soft tissue neck w con CLINICAL HISTORY: right sided swelling COMPARISON STUDY: None FINDINGS: There is swallowing artifact. There is mild prominence of the right tonsillar pillar. There is a 3 cm oval hypodense finding with thin mildly enhancing rim posterior to the right submandibular gland which displaces the right submandibular gland anteriorly. There is surrounding soft tissue infla mmation. The right submandibular gland is edematous and enlarged. There is mild right level 2 lymphadenopathy measuring up to 1.1 cm greatest dimension. There is cervical spine degenerative disc disease most advanced inferiorly. IMPRESSION: 1. 3 cm oval finding posterior to the right submandibular gland with adjacent inflammation. Differential diagnosis includes abscess, infected right branchial cleft cyst, and necrotic mass. 2. Likely reactive inflammation of the right submandibular gland, right tonsillar pillar and a few mildly enlarged right level 2 lymph nodes. 3. Follow-up to resolution recommended to rule out underlying mass. ACT 112: Positive. There are findings on this exam that require communication between the performing entity and the patient following Patient Test Result Information Act ([place] Act 112) guidelines. Electronically signed by: Eleuterio Underwood M.D. 12/27/2024 12:20 PM Pending Results Patient Have Any Pending Studies at Discharge: Yes Discharge Instructions Given to Patient (Per Discharging Provider) Mr. Garces, You were hospitalized for an abscess near your neck that required drainage in the OR with Dr. Pink. Thankfully, you have done well and are stable to go home on oral antibiotics. Please take the entire course, even if you feel well. You will need to follow up with Dr. Pink office on Tuesday for drain removal. - keep incision clean and dry - no lifting over 10 pounds - can use tylenol or ibuprofen for pain - follow the instructions on the bottle - first dose of antibiotics tonight 12/28 Please follow up with your PCP next week. Return with severe pain, inability to swallow, difficulty breathing, etc. Thank you for allowing us to participate in your care! Supervising Physician Co-Signing Physician Notes Attending Attestation & Discharge Note: Chart reviewed, discharge care plan d/w PA Asha Garza. I agree w/ the sood components of her discharge documentation. Of note - I did not perform a bedside visit or physical exam on day of discharge. 74yo male with history of ISIDRO, hyperlipidemia, CVA, & hypertension presented with throat pain and was found to have a 3 cm right-sided submandibular abscess vs infected cyst vs necrotic mass on CT neck. Started on IV unasyn. Seen by [facility] [place] [facility] - Dr Oz Pink - and on 12/27 underwent I/D. Indeed the fluid collection was an abscess. He was monitored overnight and d/c in stable condition on 12/28. Culture from the abscess ultimately grew strep anginosus. He will complete a 10-day course of augmentin BID upon transition home and will have f/u with Dr Pink within a few days of discharge. Jay Brown MD Total Time Total Time Spent Total Time Spent (In Minutes): Time spent day of discharge 34 minutes including direct patient care, medication reconciliation, documentation, review of labs and images, and coordination of care. Coding Level of Care Code 78457 INP/OBS DISCH >30 MIN Diagnoses Abscess of submandibular region K12.2 ISIDRO (obstructive sleep apnea) G47.33 Hyperlipemia E78.5
--- NOTE | 2025-01-07 15:36 | Anesthesiology Progress Note ---
Date of Service January 07, 2025 Anesthesia Post Procedure Pain Intensity Neck: Pain Intensity: 6 Transfer of Care Handoff Completed per policy Notes Mental Status: alert / awake / arousable and participated in evaluation Patient Amnestic to Procedure: Yes Nausea / Vomiting: adequately controlled Pain: adequately controlled Airway Patency, RR, SpO2: stable & adequate BP & HR: stable & adequate Hydration State: stable & adequate Anesthetic Complications: no major complications apparent and Pt Satisfied with anesthetic care Notes: note done after the fact. pt seen dos.
== END 2024-12-28 11:21 | disposition home or self-care (01) | DRG 603 ==
LOC: ED 10:38 → 3W 13:56 → INTOOBSV 13:56 → SUATTDRO 13:56 → 3W 15:45